=== PATIENT | male | born 1980 | race Caucasian/White ===

== ENCOUNTER 2020-11-15 18:06 | Emergency (ER) | payer MEDICAID ==
[~2020-11-15] VITALS: Ht 170.2 cm; Wt 59.0 kg
[~2020-11-15 18:06] MED LIST: ASPI81CH; ENAL10TA86
[2020-11-15 20:02] LABS: Basophils # (auto) 0.1 10 ^3/uL (0-0.2); Basophils % (auto) 1.2 % (0.0-2.0); Eosinophils # (auto) 0.2 10 ^3/uL (0-0.8); Eosinophils % (auto) 2.4 % (0.0-7.0); Hematocrit 41.8 % (41.0-53.0); Lymphocytes # (auto) 2.4 10 ^3/uL (0.4-5.4); Lymphocytes % (auto) 27.4 % (10.0-50.0); Mean Corpuscular Hemoglobin 27.5 pg (28.0-32.0); Mean Corpuscular Hgb Conc. 33.4 g/dL (32.0-36.0); Mean Corpuscular Volume 82.3 fL (80.0-100.0); Monocytes # (auto) 0.6 10 ^3/uL (0-1.3); Monocytes % (auto) 7.1 % (0.0-12.0); Neutrophils # (auto) 5.4 10 ^3/uL (1.6-8.6); Neutrophils % (auto) 61.9 % (37.0-80.0); Nucleated Red Blood Cells % 0.1 %; Platelet Count (auto) 286 10^3/uL (140-450); Red Blood Cells 5.07 10^6/uL (4.5-5.90); Red Cell Distribution Width 13.6 % (11.8-14.3); White Blood Cell 8.7 10^3/uL (4.4-10.8)
[2020-11-15 20:19] LABS: INR 2.16 (0.9-1.15); Partial Thromboplastin Time 35.9 sec (23.0-31.2)
[2020-11-15 20:20] LABS: Albumin 3.6 g/dL (3.4-5.0); Calcium 8.8 mg/dL (8.5-10.1); Potassium 4.2 mmol/L (3.5-5.1)
[2020-11-15 20:23] LABS: BUN/Creatinine Ratio 11.1; Bilirubin, Total 0.4 mg/dL (0.2-1.0); Total Protein 7.3 g/dL (6.4-8.2)
[2020-11-15 22:00] VITALS: BP 124/55
== END 2020-11-15 22:38 | disposition home or self-care (01) ==
LOC: ER 18:06
DX: I73.00 Raynaud's syndrome without gangrene (principal); I11.0 Hypertensive heart disease with heart failure; I50.9 Heart failure, unspecified
CPT/HCPCS: 36415; 80053; 83880; 84484; 85025; 85610; 85652; 85730; 86225; 86235

== ENCOUNTER 2021-03-21 05:35 | Emergency (ER) | payer MEDICAID, OTHER ==
[~2021-03-21] VITALS: Ht 170.2 cm; Wt 59.0 kg
[2021-03-21] MEDS ORDERED: VANCOMYCIN 1GM/250ML 250 ML IV ONE (06:00)
[2021-03-21] MEDS ORDERED: SODIUM CHLORIDE 0.9% 1,000 ML IV ONE (07:00)
[2021-03-21] MEDS ORDERED: IOHEXOL 300 MG/ML 100ML BOTTLE IJ ONE (07:09)
[2021-03-21 07:28] LABS: Basophils # (auto) 0.1 10 ^3/uL (0-0.2); Basophils % (auto) 0.8 % (0.0-2.0); Eosinophils # (auto) 0.2 10 ^3/uL (0-0.8); Eosinophils % (auto) 1.4 % (0.0-7.0); Hematocrit 33.3 % (41.0-53.0); Hemoglobin 11.2 g/dL (13.5-17.5); Lymphocytes # (auto) 2.4 10 ^3/uL (0.4-5.4); Lymphocytes % (auto) 20.1 % (10.0-50.0); Mean Corpuscular Hemoglobin 28.9 pg (28.0-32.0); Mean Corpuscular Hgb Conc. 33.5 g/dL (32.0-36.0); Mean Corpuscular Volume 86.3 fL (80.0-100.0); Monocytes # (auto) 0.9 10 ^3/uL (0-1.3); Monocytes % (auto) 7.7 % (0.0-12.0); Neutrophils # (auto) 8.2 10 ^3/uL (1.6-8.6); Red Blood Cells 3.86 10^6/uL (4.5-5.90); Red Cell Distribution Width 14.8 % (11.8-14.3); White Blood Cell 11.8 10^3/uL (4.4-10.8)
[2021-03-21 07:50] LABS: Chloride 108 mmol/L (98-107); Potassium 3.5 mmol/L (3.5-5.1); Sodium 138 mmol/L (136-145)
[2021-03-21 08:00] LABS: Alanine Aminotransferase 31 U/L (16-61); Albumin 3.3 g/dL (3.4-5.0); Alkaline Phosphatase 131 U/L (45-117); Anion Gap 6 (5-15); Aspartate Aminotransferase 23 U/L (15-37); BUN/Creatinine Ratio 14.3; Bilirubin, Total 1.1 mg/dL (0.2-1.0); Blood Urea Nitrogen 12 mg/dL (7-18); Carbon Dioxide 24 mmol/L (21-32); GFR African American 131 mL/min; GFR Non-African American 108 mL/min; Glucose 91 mg/dL (74-106); Magnesium 2.3 mg/dL (1.6-2.6)
[2021-03-21 08:09] LABS: INR 1.25 (0.9-1.15); Partial Thromboplastin Time 33.2 sec (23.0-31.2)
[2021-03-21 18:41] LABS: Urine Bacteria NONE SEEN /hpf (None Seen); Urine Blood Negative /uL (Negative); Urine Specific Gravity 1.042 (1.001-1.035); Urine WBC <1 /hpf (0 - 3)
[2021-03-22 05:57] VITALS: BP 121/71
== END 2021-03-22 06:14 | disposition short-term general hospital (02) ==
LOC: EDBD 05:35 → ER 05:35 → EDUNIT# 05:35 → ER 03-22 06:14
DX: L03.313 Cellulitis of chest wall (principal); I11.0 Hypertensive heart disease with heart failure; I50.9 Heart failure, unspecified; Z95.0 Presence of cardiac pacemaker; Z90.49 Acquired absence of other specified parts of digestive tract; Z79.82 Long term (current) use of aspirin; Z79.899 Other long term (current) drug therapy; Z20.822 Contact with and (suspected) exposure to COVID-19
CPT/HCPCS: 36415; 71260; 80053; 81001; 83605; 83735; 84484; 85025; 85610; 85730; 87040; 93005; 96365; 96366; 99285; C9803; J3370; Q9967; U0003

== ENCOUNTER 2021-05-30 15:16 | Inpatient (IN) | payer MEDICAID ==
[~2021-05-30] VITALS: Ht 177.8 cm; Wt 69.1 kg
[2021-05-30] MEDS ORDERED: SODIUM CHLORIDE 0.9% 1,000 ML IV ONE (15:30)
[2021-05-30] MEDS ORDERED: ONDANSETRON HCL 4 MG/2 ML VIAL IV ONE (15:30)
[2021-05-30] MEDS ORDERED: MORPHINE SULFATE 4 MG/ML SYR/VIAL IV ONE (15:30)
[2021-05-30] MEDS ORDERED: HEPARIN SODIUM (PORCINE) 5000 UNITS/ML 1ML VIAL IV ONE (15:30)
[2021-05-30] MEDS ORDERED: fentaNYL CITRATE 100 MCG/2 ML VL ONE (15:32)
[2021-05-30] MEDS ORDERED: ANGIOMAX 250 MG VIAL IV ONE (15:32)
[2021-05-30] MEDS ORDERED: MIDAZOLAM HCL 2MG/2ML 2ml VIAL (1mg/ml) ONE (15:32)
[2021-05-30] MEDS ORDERED: IODIXANOL 320MG/ML 100ML BTL IV ONE ×4 (15:33→17:17)
[2021-05-30] MEDS ORDERED: LIDOCAINE 2%HCL (LOCAL ANESTH.) INJ 20ML MDV ONE (15:33)
[2021-05-30] MEDS ORDERED: SODIUM CHL 0.9% 50 ML ONE (15:33)
[2021-05-30] MEDS ORDERED: VERAPAMIL 2.5MG/ML INJ 2ML VIAL IV ONE (15:34)
[2021-05-30 15:41] LABS: Basophils # (auto) 0.1 10 ^3/uL (0-0.2); Basophils % (auto) 0.9 % (0.0-2.0); Eosinophils # (auto) 0.1 10 ^3/uL (0-0.8); Eosinophils % (auto) 1.7 % (0.0-7.0); Hematocrit 43.6 % (41.0-53.0); Hemoglobin 14.1 g/dL (13.5-17.5); Lymphocytes # (auto) 2.6 10 ^3/uL (0.4-5.4); Lymphocytes % (auto) 33.8 % (10.0-50.0); Mean Corpuscular Hemoglobin 27.4 pg (28.0-32.0); Mean Corpuscular Hgb Conc. 32.4 g/dL (32.0-36.0); Mean Corpuscular Volume 84.6 fL (80.0-100.0); Monocytes # (auto) 0.8 10 ^3/uL (0-1.3); Monocytes % (auto) 10.2 % (0.0-12.0); Neutrophils # (auto) 4.1 10 ^3/uL (1.6-8.6); Neutrophils % (auto) 53.4 % (37.0-80.0); Nucleated Red Blood Cells % 0.1 %; Red Blood Cells 5.15 10^6/uL (4.5-5.90); Red Cell Distribution Width 13.3 % (11.8-14.3); White Blood Cell 7.6 10^3/uL (4.4-10.8)
[2021-05-30 16:03] LABS: Albumin 3.5 g/dL (3.4-5.0); BUN/Creatinine Ratio 10.6; Calcium 8.6 mg/dL (8.5-10.1); Potassium 3.7 mmol/L (3.5-5.1)
[2021-05-30 16:08] LABS: Bilirubin, Total 0.5 mg/dL (0.2-1.0)
[2021-05-30] MEDS ORDERED: ATORVASTATIN 20 MG TAB PO ONE (16:15)
[2021-05-30 16:23] LABS: INR 1.08 (0.9-1.15); Partial Thromboplastin Time 27.1 sec (23.6-33.0)
[2021-05-30] MEDS ORDERED: NITROGLYCERIN 0.4 MG SL TAB SL PRN ×2 (16:30→19:30)
[2021-05-30] MEDS ORDERED: MORPHINE SULFATE INJECTION 2 MG/ML SYRG IV PRN ×3 (16:30→19:30)
[2021-05-30] MEDS ORDERED: ACET-1304 PO (16:53)
[2021-05-30] MEDS ORDERED: SERT50TA19 PO (16:53)
[2021-05-30] MEDS ORDERED: IBUP800T27 PO (16:53)
[2021-05-30] MEDS ORDERED: WARF4TAB33 PO (16:53)
[2021-05-30] MEDS ORDERED: CIPR250T3 PO (16:53)
[2021-05-30] MEDS ORDERED: LEVE500T3 PO (16:53)
[2021-05-30] MEDS ORDERED: MET25T PO (16:53)
[2021-05-30] MEDS ORDERED: HYDR25TA87 PO (16:53)
[2021-05-30] MEDS ORDERED: SENN-195 PO (16:53)
[2021-05-30] MEDS ORDERED: ASPI-498 PO (16:57)
[2021-05-30] MEDS ORDERED: HEPARIN SODIUM (PORCINE) 5000 UNITS/ML 1ML VIAL ONE (17:01)
[2021-05-30 17:21] LABS: Cholesterol 147 mg/dL (< 200); HDL Cholesterol 48 mg/dL (40-59); LDL Cholesterol 90 mg/dL (< 100); Triglycerides 60 mg/dL (< 150)
[2021-05-30] MEDS ORDERED: WARFARIN SODIUM 2.5 MG TAB PO ONE (18:00)
[2021-05-30] MEDS ORDERED: WARFARIN SODIUM 5 MG TAB PO ONE (18:00)
[2021-05-30] MEDS: HEPARIN DRIP/D5W 100UNITS/ML 250 ML IV SCH (18:36)
[2021-05-30 19:20] VITALS: BP 121/88
[2021-05-30] MEDS ORDERED: ONDANSETRON HCL 4 MG/2 ML VIAL IV PRN (19:30)
[2021-05-30] MEDS ORDERED: SODIUM CHLORIDE 0.9% 1,000 ML IV SCH (19:30)
[2021-05-30] MEDS ORDERED: DOCUSATE SOD 100 MG CAP PO PRN (19:30)
[2021-05-30] MEDS ORDERED: LORazepam 0.5 MG TAB PO PRN (19:30)
[2021-05-30] MEDS ORDERED: ACETAMINOPHEN 325 MG TAB PO PRN (19:30)
[2021-05-30] MEDS ORDERED: HYDROcodone-ACET 5/325MG TAB PO PRN (19:30)
[2021-05-30] MEDS ORDERED: ALUM & MAG HYDROX-SIMETH LIQ(MAALOX) 30 ML PO PRN (19:30)
[2021-05-30 21:09] LABS: INR 1.18 (0.9-1.15)
[2021-05-30 21:17] LABS: Partial Thromboplastin Time > 139.0 sec (23.6-33.0)
[2021-05-30 21:27] LABS: Urine Bacteria NONE SEEN /hpf (None Seen); Urine Blood 1+ /uL (Negative); Urine Mucus FEW (None Seen); Urine WBC <1 /hpf (0 - 3)
[2021-05-30 21:32] LABS: Urine Specific Gravity > 1.050 (1.001-1.035)
[2021-05-30 21:33] LABS: Alcohol, Urine < 3.0 mg/dL (0-10); Amphetamine Screen, Urine POSITIVE (NEGATIVE); Barbiturate Scree,Urine NEGATIVE (NEGATIVE); Benzodiazephine Screen, Urine POSITIVE (NEGATIVE); Cannabinoid Screen, Urine NEGATIVE (NEGATIVE); Cocaine Screen, Urine NEGATIVE (NEGATIVE); Opiate Scree,Urine NEGATIVE (NEGATIVE); Phencyclidine Screen, Urine NEGATIVE (NEGATIVE)
[2021-05-30 22:00] VITALS: BP 119/89
[2021-05-30] MEDS ORDERED: METOPROLOL TARTRATE 25 MG TAB PO SCH (22:00)
[2021-05-30] MEDS ORDERED: CARVEDILOL 3.125 MG TAB PO SCH (22:00)
[2021-05-30] MEDS: levETIRAcetam 500 MG TAB PO SCH (22:14)
[2021-05-30] MEDS: ATORVASTATIN 20 MG TAB PO SCH (22:15)
[2021-05-31] VITALS (7 sets, daily range): BP systolic 91–121; BP diastolic 59–88
[2021-05-31 06:05] LABS: Basophils # (auto) 0.1 10 ^3/uL (0-0.2); Basophils % (auto) 0.6 % (0.0-2.0); Eosinophils # (auto) 0.1 10 ^3/uL (0-0.8); Eosinophils % (auto) 0.8 % (0.0-7.0); Hematocrit 43.5 % (41.0-53.0); Hemoglobin 14.6 g/dL (13.5-17.5); Lymphocytes # (auto) 1.3 10 ^3/uL (0.4-5.4); Lymphocytes % (auto) 8.3 % (10.0-50.0); Mean Corpuscular Hemoglobin 28.7 pg (28.0-32.0); Mean Corpuscular Hgb Conc. 33.6 g/dL (32.0-36.0); Mean Corpuscular Volume 85.3 fL (80.0-100.0); Monocytes # (auto) 0.8 10 ^3/uL (0-1.3); Monocytes % (auto) 5.4 % (0.0-12.0); Neutrophils # (auto) 12.9 10 ^3/uL (1.6-8.6); Neutrophils % (auto) 84.9 % (37.0-80.0); Nucleated Red Blood Cells % 0.1 %; Red Cell Distribution Width 13.2 % (11.8-14.3); White Blood Cell 15.2 10^3/uL (4.4-10.8)
[2021-05-31 06:06] LABS: INR 1.16 (0.9-1.15); Partial Thromboplastin Time 44.5 sec (23.6-33.0)
[2021-05-31 06:27] LABS: Calcium 8.4 mg/dL (8.5-10.1); Potassium 4.1 mmol/L (3.5-5.1)
[2021-05-31 06:52] LABS: BUN/Creatinine Ratio 11.9
[2021-05-31] MEDS: CARVEDILOL 3.125 MG TAB PO SCH ×2 (10:00→22:30)
[2021-05-31] MEDS: ASPirin 81 mg TAB PO SCH (10:05)
[2021-05-31] MEDS: levETIRAcetam 500 MG TAB PO SCH ×2 (10:05→22:30)
[2021-05-31] MEDS: SERTRALINE HCL 50 MG TAB PO SCH (10:06)
[2021-05-31] MEDS: LISINOPRIL 5 MG TAB PO SCH (10:06)
[2021-05-31 10:39] LABS: INR 1.21 (0.9-1.15); Partial Thromboplastin Time 42.7 sec (23.6-33.0)
[2021-05-31] MEDS ORDERED: ATOR20TA50 PO (12:58)
[2021-05-31] MEDS ORDERED: WARFARIN SODIUM 10 MG TAB PO ONE ×2 (13:00→17:00)
[2021-05-31] MEDS ORDERED: HYDROCORTISONE SOD SUCC 100 MG/2ML INJ VIAL IV ONE (13:00)
[2021-05-31] MEDS ORDERED: WARFARIN SODIUM 2.5 MG TAB PO ONE (17:00)
[2021-05-31 19:14] LABS: INR 1.59 (0.9-1.15); Partial Thromboplastin Time 35.6 sec (23.6-33.0)
[2021-05-31] MEDS: ATORVASTATIN 20 MG TAB PO SCH (22:30)
[2021-06-01] MEDS: HEPARIN DRIP/D5W 100UNITS/ML 250 ML IV SCH (02:05)
[2021-06-01 02:36] LABS: INR 2.35 (0.9-1.15)
[2021-06-01 02:37] LABS: Partial Thromboplastin Time 103.4 sec (23.6-33.0)
[2021-06-01 05:00] VITALS: BP 96/66
[2021-06-01 06:34] LABS: Basophils # (auto) 0.1 10 ^3/uL (0-0.2); Basophils % (auto) 0.5 % (0.0-2.0); Eosinophils # (auto) 0.2 10 ^3/uL (0-0.8); Eosinophils % (auto) 1.1 % (0.0-7.0); Hematocrit 46.2 % (41.0-53.0); Lymphocytes # (auto) 3.2 10 ^3/uL (0.4-5.4); Lymphocytes % (auto) 22.6 % (10.0-50.0); Mean Corpuscular Hemoglobin 27.7 pg (28.0-32.0); Mean Corpuscular Hgb Conc. 32.4 g/dL (32.0-36.0); Mean Corpuscular Volume 85.3 fL (80.0-100.0); Monocytes # (auto) 1.1 10 ^3/uL (0-1.3); Monocytes % (auto) 7.6 % (0.0-12.0); Neutrophils # (auto) 9.7 10 ^3/uL (1.6-8.6); Neutrophils % (auto) 68.2 % (37.0-80.0); Red Blood Cells 5.41 10^6/uL (4.5-5.90); Red Cell Distribution Width 13.2 % (11.8-14.3); White Blood Cell 14.2 10^3/uL (4.4-10.8)
[2021-06-01 07:06] LABS: INR 2.72 (0.9-1.15); Partial Thromboplastin Time 61.8 sec (23.6-33.0)
[2021-06-01] MEDS: CARVEDILOL 3.125 MG TAB PO SCH (08:34)
[2021-06-01] MEDS: levETIRAcetam 500 MG TAB PO SCH (08:34)
[2021-06-01] MEDS: SERTRALINE HCL 50 MG TAB PO SCH (08:34)
[2021-06-01] MEDS: ASPirin 81 mg TAB PO SCH (08:34)
[2021-06-01 09:30] VITALS: BP 99/53
[2021-06-01] MEDS: LISINOPRIL 5 MG TAB PO SCH (09:46)
[2021-06-01 12:26] LABS: INR 2.95 (0.9-1.15); Partial Thromboplastin Time 58.2 sec (23.6-33.0)
[2021-06-01 13:30] VITALS: BP 101/67
[2021-06-01] MEDS ORDERED: WARFARIN SODIUM 2.5 MG TAB PO ONE (17:00)
== END 2021-06-01 18:55 | disposition home or self-care (01) | DRG 174 ==
LOC: ER 15:16 → EDBD 15:16 → TELE 16:21 → TELE-WESTW 19:10
PROVIDERS: ADMIT Hospitalist; ATTEND Hospitalist
PROC: 4A023N7 Measurement of Cardiac Sampling and Pressure, Left Heart, Percutaneous Approach (ICD-10-PCS; principal; 2021-05-30)
PROC: 02703ZZ Dilation of Coronary Artery, One Artery, Percutaneous Approach (ICD-10-PCS; 2021-05-30)
PROC: B211YZZ Fluoroscopy of Multiple Coronary Arteries using Other Contrast (ICD-10-PCS; 2021-05-30)
PROC: B215YZZ Fluoroscopy of Left Heart using Other Contrast (ICD-10-PCS; 2021-05-30)
PROC: 02C13ZZ Extirpation of Matter from Coronary Artery, Two Arteries, Percutaneous Approach (ICD-10-PCS; 2021-05-30)
DX: I21.3 ST elevation (STEMI) myocardial infarction of unspecified site (principal); J96.01 Acute respiratory failure with hypoxia; I27.21 Secondary pulmonary arterial hypertension; I49.5 Sick sinus syndrome; G40.909 Epilepsy, unspecified, not intractable, without status epilepticus; I48.91 Unspecified atrial fibrillation; I50.32 Chronic diastolic (congestive) heart failure; I11.0 Hypertensive heart disease with heart failure; Q25.0 Patent ductus arteriosus; E78.5 Hyperlipidemia, unspecified; F12.90 Cannabis use, unspecified, uncomplicated; I25.5 Ischemic cardiomyopathy; I16.9 Hypertensive crisis, unspecified; F17.200 Nicotine dependence, unspecified, uncomplicated; F32.9 Major depressive disorder, single episode, unspecified; F41.9 Anxiety disorder, unspecified; I25.10 Atherosclerotic heart disease of native coronary artery without angina pectoris; J98.11 Atelectasis; Z20.822 Contact with and (suspected) exposure to COVID-19; Z79.01 Long term (current) use of anticoagulants; Z86.14 Personal history of Methicillin resistant Staphylococcus aureus infection; Z95.0 Presence of cardiac pacemaker; Z91.19 Patient's noncompliance with other medical treatment and regimen; Z91.013 Allergy to seafood
CPT/HCPCS: 36415; 71045; 80048; 80053; 80061; 80307; 81001; 83036; 83880; 84443; 84484; 85025; 85610; 85730; 87040; 87081; 87086; 87426; 92924; 93005; 93306; 93458; 96361; 96374; 96375; 99152; 99153; 99291; C1887; G0378; J2250; J2405; Q9967